=== PATIENT | female | born 1945 | race Caucasian/White ===

== ENCOUNTER 2016-10-22 13:39 | Emergency (ER) | payer MEDICARE, OTHER ==
[2016-10-22 13:49] VITALS: BMI 24.5
[2016-10-22 16:55] LABS: BASOPHIL 0.5 % (0-2.0); EOSINOPHIL 0.4 % (0-4.5); MCH 27.1 pg (25.7-33.7); MCHC 32.7 g/dl (32.0-36.0); MEAN CELL VOLUME 82.9 fl (80-96); MEAN PLT VOLUME 9.5 fl (7.5-11.1); NEUTROPHILS 65.7 % (42.8-82.8); PLATELET COUNT 222 K/MM3 (134-434); RDW 14.2 % (11.6-15.6); WHITE BLOOD COUNT 7.3 K/mm3 (4.0-10.0)
--- NOTE | 2016-10-22 16:57 | PDOC ---
History of Present Illness - General History Source: Patient, Old Records Exam Limitations: No Limitations <Pilar Lucas - Last Filed: 10/22/16 16:54> - General History Source: Patient Exam Limitations: No Limitations - History of Present Illness Initial Comments: 10/22/16 17:01 The patient is a 71-year-old woman with a significant past medical history of anemia, hypertension, hyperlipidemia, non-insulin dependent diabetes mellitus, nephrolithiasis, renal neoplasm, osteopenia, arthralgias who presents to the emergency department for evaluation of elevated blood pressure. Patient went to her PCP, Dr. Zhu, for a right subconjunctival hemorrhage. She was sent to an Opthamologist, Dr. Nathan Carranza for further evaluation Patient was noted to be hypertensive and she is on Aspirin, thus she was advised to present to the ED. Upon patient interview, she states that she has experienced a three month history of a dry intermittent cough. This morning, she coughed and noted that she developed a right subconjunctival hemorrhage. She admits she has not been compliant with her Aspirin for the past week. She also reports lower back pain. No fall, trauma, strenuous activity. No urinary complaints. No chest pain, lightheadedness, visual changes, neck pain, neck stiffness, abdominal pain, nausea, vomiting, diarrhea. Allergies: Penicillin Past Surgical History: Appendectomy. Cholecystectomy. Social History: Never smoked. No EtOH and recreational drug use. Primary Care Physician: Dr. Jamila Zhu <Candis Roth - Last Filed: 10/22/16 17:01> <Vanessa Martin - Last Filed: 10/22/16 17:49> - General Chief Complaint: Blood Pressure Problem Stated Complaint: HEADACHES, HIGH BP Time Seen by Provider: 10/22/16 14:31 Past History - Past Medical History Diabetes: Yes HTN: Yes Hypercholesterolemia: Yes - Surgical History Appendectomy: Yes Cholecystectomy: Yes - Psycho/Social/Smoking Cessation Hx Anxiety: No Suicidal Ideation: No Smoking History: Never smoked Have you smoked in the past 12 months: No Information on smoking cessation initiated: No Hx Alcohol Use: No Drug/Substance Use Hx: No Substance Use Type: None <Pilar Lucas - Last Filed: 10/22/16 16:54> <Candis Roth - Last Filed: 10/22/16 17:01> <MarioVanessa - Last Filed: 10/22/16 17:49> - Past Medical History Allergies/Adverse Reactions: Allergies Allergy/AdvReac Type Severity Reaction Status Date / Time Penicillins Allergy Verified 10/22/16 13:41 Home Medications: Ambulatory Orders Aspirin [ASA -] 81 mg PO DAILY 10/22/16 Atorvastatin Calcium 20 mg PO DAILY 10/22/16 Blood Sugar Diagnostic [Freestyle Insulinx Test Strips] 1 each MC DAILY Chlorthalidone 25 mg PO DAILY 10/22/16 Gabapentin [Neurontin] 100 mg PO HS 10/22/16 Glimepiride [Amaryl] 4 mg PO BID 10/22/16 Lancets [Freestyle Lancets] 1 each MC DAILY 10/22/16 Metformin HCl [Glucophage] 1,000 mg PO BID 10/22/16 Metoprolol Succinate [Toprol Xl -] 50 mg PO BID 10/22/16 Olmesartan Medoxomil [Benicar (Nf)] 40 mg PO DAILY 10/22/16 Review of Systems - Review of Systems Able to Perform ROS?: Yes Comments:: 10/22/16 17:01 GENERAL/CONSTITUTIONAL: No fever or chills. No weakness. HEAD, EYES, EARS, NOSE AND THROAT: Yes: right subconjunctival hemorrhage. No change in vision. No ear pain or discharge. No sore throat. CARDIOVASCULAR: No chest pain or shortness of breath. RESPIRATORY: Yes: cough. No cough, wheezing, or hemoptysis. GASTROINTESTINAL: No nausea, vomiting, diarrhea or constipation. GENITOURINARY: No dysuria, frequency, or change in urination. MUSCULOSKELETAL: Yes: Lower back pain. No joint or muscle swelling or pain. No neck pain. SKIN: No rash NEUROLOGIC: No headache, vertigo, loss of consciousness, or change in strength/ sensation. ENDOCRINE: No increased thirst. No abnormal weight change. HEMATOLOGIC/LYMPHATIC: Yes: History of anemia. No easy bleeding, or history of blood clots. ALLERGIC/IMMUNOLOGIC: No hives or skin allergy. <Candis Roth - Last Filed: 10/22/16 17:01> *Physical Exam - Vital Signs Last Vital Signs Temp Pulse Resp BP Pulse Ox 97.2 F L 64 16 190/51 96 10/22/16 15:00 10/22/16 15:00 10/22/16 15:00 10/22/16 15:00 10/22/16 15:00 <ShayyPliar - Last Filed: 10/22/16 16:54> - Vital Signs Last Vital Signs Temp Pulse Resp BP Pulse Ox 97.2 F L 64 16 190/51 96 10/22/16 15:00 10/22/16 15:00 10/22/16 15:00 10/22/16 15:00 10/22/16 15:00 - Physical Exam Comments: 10/22/16 17:02 GENERAL: Awake, alert, and fully oriented, in no acute distress HEAD: No signs of trauma EYES: PERRLA, EOMI, sclera anicteric, there is a right medial subconjunctival hemorrhage ENT: Auricles normal inspection, hearing grossly normal, nares patent, oropharynx clear without exudates. Moist mucosa NECK: Normal ROM, supple, no lymphadenopathy, JVD, or masses LUNGS: Breath sounds equal, clear to auscultation bilaterally. No wheezes, and no crackles HEART: Regular rate and rhythm, normal S1 and S2, no murmurs, rubs or gallops ABDOMEN: Soft, nontender, normoactive bowel sounds. No guarding, no rebound. No masses EXTREMITIES: Normal range of motion, no edema. No clubbing or cyanosis. No cords, erythema, or tenderness NEUROLOGICAL: Cranial nerves II through XII grossly intact. Normal speech, normal gait <Candis Roth - Last Filed: 10/22/16 17:01> - Vital Signs Last Vital Signs Temp Pulse Resp BP Pulse Ox 97.2 F L 64 16 190/51 96 10/22/16 15:00 10/22/16 15:00 10/22/16 15:00 10/22/16 15:00 10/22/16 15:00 <Vanessa Martin - Last Filed: 10/22/16 17:49> ED Treatment Course - LABORATORY CBC & Chemistry Diagram: 10/22/16 16:00 10/22/16 16:00 - ADDITIONAL ORDERS Additional order review: Laboratory Results 10/22/16 14:59 POC Glucometer [id number] 10/22/16 14:59 POC Glucometer [id number] - RADIOLOGY Radiology Studies Ordered: Category Date Time Status CHEST PA & LAT [RAD] Stat Radiology 10/22/16 15:49 Ordered <Pilar Lucas - Last Filed: 10/22/16 16:54> - LABORATORY CBC & Chemistry Diagram: 10/22/16 16:00 10/22/16 16:00 - ADDITIONAL ORDERS Additional order review: Laboratory Results 10/22/16 14:59 POC Glucometer [id number] 10/22/16 10/22/16 16:00 14:59 RBC 4.03 MCV 82.9 MCHC 32.7 RDW 14.2 MPV 9.5 Neutrophils % 65.7 Lymphocytes % 25.5 Monocytes % 7.9 Eosinophils % 0.4 Basophils % 0.5 POC Glucometer [id number] <Candis Roth - Last Filed: 10/22/16 17:01> - LABORATORY CBC & Chemistry Diagram: 10/22/16 16:00 10/22/16 16:00 - ADDITIONAL ORDERS Additional order review: Laboratory Results 10/22/16 10/22/16 10/22/16 16:13 16:00 14:59 Sodium 138 Potassium 5.5 H Chloride 105 Carbon Dioxide 22 Anion Gap 11 BUN 26 H Creatinine 1.0 Creat Clearance w eGFR 54.81 POC Glucometer 202.71904 Random Glucose 155 H Calcium 9.3 Total Bilirubin 0.3 AST 13 L ALT 22 Alkaline Phosphatase 70 Total Protein 7.5 Albumin 3.7 Urine Color Straw Urine Appearance Clear Urine pH 5.0 Urine Protein Negative Urine Glucose (UA) 2+ H Urine Ketones Negative Urine Blood Negative Urine Nitrite Negative Urine Bilirubin Negative Urine Urobilinogen Negative Ur Leukocyte Esterase Negative 10/22/16 10/22/16 16:00 14:59 RBC 4.03 MCV 82.9 MCHC 32.7 RDW 14.2 MPV 9.5 Neutrophils % 65.7 Lymphocytes % 25.5 Monocytes % 7.9 Eosinophils % 0.4 Basophils % 0.5 POC Glucometer 202.09601 <Vanessa Martin - Last Filed: 10/22/16 17:49> Medical Decision Making - Medical Decision Making 10/22/16 16:55 71-year-old female with history of hypertension, anemia, diabetes, hyperlipidemia and nephrolithiasis presents to the emergency department with some conjunctival hemorrhage of the right eye and three-month history of cough. Differential diagnosis includes but is not limited to: URI, pneumonia, malignancy, ALLERGIES, reactive airway disease. Plan: 1. Labs 2. EKG 3. Chest x-ray 4. Observe and reevaluate <Pilar Lucas - Last Filed: 10/22/16 16:54> *DC/Admit/Observation/Transfer - Discharge Dispostion Admit: No - Attestations Physician Attestion: 10/22/16 16:55 I, Dr. Pilar Lucas, attest that the scribes documentation that appears above has been prepared under my direction and personally reviewed by me in its entirety. I confirmed that the note above accurately reflects all work, treatment, procedures, and medical decision-making performed by me. <Pilar Lucas - Last Filed: 10/22/16 16:54> - Attestations Scribe Attestion: 10/22/16 17:02 Documentation prepared by Candis Roth, acting as medical terminologist for Pilar Lucas MD. <Candis Roth - Last Filed: 10/22/16 17:01> <Vanessa Martin - Last Filed: 10/22/16 17:49> Diagnosis at time of Disposition: Cough, Subconjunctival hemorrhage of right eye - Discharge Dispostion Disposition: HOME Condition at time of disposition: Stable - Referrals Referrals: Jamila Zhu MD [Primary Care Provider] -
[2016-10-22 16:58] LABS: ALBUMIN 3.7 g/dl (3.4-5.0); BILIRUBIN,TOTAL 0.3 mg/dL (0.2-1.0); CALCIUM 9.3 mg/dL (8.5-10.1); COCKROFT - GAULT 53.601; TOT PROT 7.5 g/dl (6.4-8.2)
[2016-10-22 17:08] LABS: URINE APPEARANCE CLEAR; URINE BILIRUBIN NEGATIVE (NEGATIVE); URINE BLOOD NEGATIVE (NEGATIVE); URINE COLOR STRAW; URINE GLUCOSE (UA) 2+ (NEGATIVE); URINE KETONE NEGATIVE (NEGATIVE); URINE LEUK ESTERASE NEGATIVE (NEGATIVE); URINE NITRITE NEGATIVE (NEGATIVE); URINE PROTEIN NEGATIVE (NEGATIVE); URINE UROBILINOGEN NEGATIVE E.U./dl (0.2-1.0)
[2016-10-22] MEDS ORDERED: ACETAMINOPHEN 325 MG TABLET (FP) PO ONE (17:49)
[2016-10-22] MEDS ORDERED: ACETAMINOPHEN 325 MG TABLET (FP) ONE (17:50)
[2016-10-22] MEDS ORDERED: SODIUM POLYSTYRENE SULFONATE 15 GM/60 ML BOTTLE ONE (17:50)
[2016-10-22 17:55] LABS: TROPONIN I < 0.02 ng/ml (0.00-0.05)
[2016-10-22 18:06] VITALS: BP 150/61; PULSE 60; TEMP 97.5
--- NOTE | 2016-10-23 11:45 | EKG ---
Test Reason : Blood Pressure : / mmHG Vent. Rate : 058 BPM Atrial Rate : 058 BPM P-R Int : 144 ms QRS Dur : 080 ms QT Int : 436 ms P-R-T Axes : 062 039 064 degrees QTc Int : 428 ms SINUS BRADYCARDIA OTHERWISE NORMAL ECG WHEN COMPARED WITH ECG OF 04-OCT-2010 16:03, NO SIGNIFICANT CHANGE WAS FOUND Confirmed by ABBY LOPEZ MD ([id number]) on 10/23/2016 11:44:33 AM Referred By: Confirmed By:ABBY LOPEZ MD
== END 2016-10-22 18:22 | disposition home or self-care (01) ==
LOC: JER 13:39
DX: H11.31 Conjunctival hemorrhage, right eye (principal); I10 Essential (primary) hypertension; E78.00 Pure hypercholesterolemia, unspecified; E11.9 Type 2 diabetes mellitus without complications; Z79.84 Long term (current) use of oral hypoglycemic drugs; M85.80 Other specified disorders of bone density and structure, unspecified site; Z87.442 Personal history of urinary calculi
CPT/HCPCS: 36415; 71020-TC; 80053; 81003; 82550; 84484; 85025; 93005; 93010; 99283-25

== ENCOUNTER 2019-01-21 10:14 | Observation (INO) | payer OTHER ==
[2019-01-21 10:19] VITALS: BMI 26.2
[2019-01-21 11:17] LABS: BASO % 0.4 % (0-2.0); EOS % 0.3 % (0-4.5); HEMATOCRIT 32.1 % (32.4-45.2); HEMOGLOBIN 10.6 GM/dL (10.7-15.3); LYMPH % 19.3 % (8-40); MCH 27.9 pg (25.7-33.7); MEAN CELL VOLUME 84.6 fl (80-96); MEAN PLT VOLUME 8.5 fl (7.5-11.1); PLATELET COUNT 185 K/MM3 (134-434); RBC 3.79 M/mm3 (3.60-5.2); RDW 13.6 % (11.6-15.6); WHITE BLOOD COUNT 6.9 K/mm3 (4.0-10.0)
[2019-01-21 11:31] LABS: INR 0.97 (0.83-1.09); PROTHROMBIN TIME (PATIENT) 11.5 SEC (9.7-13.0)
[2019-01-21 11:33] LABS: ACTIVATED PTT 34.7 SECONDS (25.2-36.5)
[2019-01-21 11:47] LABS: ALBUMIN 3.7 g/dl (3.4-5.0); ALK PHOS 74 U/L (45-117); ANION GAP 6 MMOL/L (8-16); BILIRUBIN,TOTAL 0.4 mg/dL (0.2-1); BLOOD UREA NITROGEN 27.1 mg/dL (7-18); CALCIUM 9.2 mg/dL (8.5-10.1); CHLORIDE 104 mmol/L (98-107); CO2 22 mmol/L (21-32); CREATININE 1.3 mg/dL (0.55-1.3); GLUCOSE,RANDOM 234 mg/dL (74-106); POTASSIUM 5.8 mmol/L (3.5-5.1); SGOT/AST 17 U/L (15-37); SGPT/ALT 21 U/L (13-61); SODIUM 133 mmol/L (136-145); TOT PROT 7.4 g/dl (6.4-8.2)
[2019-01-21] MEDS ORDERED: CALCIUM GLUCONATE 10% - 1,000 MG/10 ML VIAL IVPB ONE (12:36)
[2019-01-21] MEDS ORDERED: CALCIUM GLUCONATE 10% - 1,000 MG/10 ML VIAL ONE (13:00)
--- NOTE | 2019-01-21 13:00 | PDOC ---
Documentation entered by Jovon German SCRIBE, acting as scribe for Carleen Jaeger MD. Carleen Jaeger MD: This documentation has been prepared by the Maxi sy Daniel, SCRIBE, under my direction and personally reviewed by me in its entirety. I confirm that the documentation accurately reflects all work, treatment, procedures, and medical decision making performed by me. History of Present Illness - General Chief Complaint: Lightheaded Stated Complaint: DIZZINESS Time Seen by Provider: 01/21/19 11:02 History Source: Patient Exam Limitations: No Limitations - History of Present Illness Initial Comments: 01/21/19 11:47 The patient is a 73 year old female with a past medical history of diabetes, HTN , and HLD here today for evaluation of lightheadedness. The patient reports that she has had lightheadedness for the past week and notes that her blood pressure has been labile, at times high and at times low. She states that her dizziness is worse with walking and makes her feel like she is going to pass out. She also notes a gradual onset intermittent bitemporal headache above her eyes a/w with the lightheadedness. Patient notes that she was told to get an echocardiogram by her PCP Dr. Zhu. Patient denies fever, chills. Denies focal weakness/numbness. Denies chest pain , shortness of breath. Denies nausea, vomiting, diarrhea, abdominal pain. Denies changes in medication. Allergies: penicillins PCP: Jamila Zhu Manager Drive: Italo Cedillo Past History - Past Medical History Allergies/Adverse Reactions: Allergies Allergy/AdvReac Type Severity Reaction Status Date / Time Penicillins Allergy Verified 01/21/19 10:19 Home Medications: Ambulatory Orders Aspirin [ASA -] 81 mg PO DAILY 10/22/16 Amlodipine Besylate [Norvasc -] 2.5 mg PO PRN PRN 01/21/19 Insulin (Levemir) [Levemir Vial] 34 unit SQ HS 01/21/19 Insulin Aspart [Novolog] 0 unit SQ BID 01/21/19 Labetalol HCl [Normodyne -] 200 mg PO BID 01/21/19 Rosuvastatin [Crestor -] 5 mg PO HS 01/21/19 COPD: No Diabetes: Yes HTN: Yes Hypercholesterolemia: Yes - Surgical History Appendectomy: Yes Cholecystectomy: Yes - Suicide/Smoking/Psychosocial Hx Smoking History: Never smoked Have you smoked in the past 12 months: No Hx Alcohol Use: No Drug/Substance Use Hx: No Substance Use Type: None Review of Systems - Review of Systems Able to Perform ROS?: Yes Comments:: 01/21/19 11:48 GENERAL/CONSTITUTIONAL: +general weakness. +dizziness. No fever or chills. HEAD, EYES, EARS, NOSE AND THROAT: No change in vision. No ear pain or discharge. No sore throat. GASTROINTESTINAL: No nausea, vomiting, diarrhea or constipation. GENITOURINARY: No dysuria, frequency, or change in urination. CARDIOVASCULAR: No chest pain or shortness of breath. RESPIRATORY: No cough, wheezing, or hemoptysis. MUSCULOSKELETAL: No joint or muscle swelling or pain. No neck or back pain. SKIN: No rash NEUROLOGIC: +headache. No vertigo, loss of consciousness, or change in strength/ sensation. ENDOCRINE: No increased thirst. No abnormal weight change. HEMATOLOGIC/LYMPHATIC: No anemia, easy bleeding, or history of blood clots. ALLERGIC/IMMUNOLOGIC: No hives or skin allergy. *Physical Exam - Vital Signs Last Vital Signs Temp Pulse Resp BP Pulse Ox 97.9 F 67 16 174/42 H 100 01/21/19 10:16 01/21/19 10:16 01/21/19 10:16 01/21/19 10:16 01/21/19 11:00 - Physical Exam Comments: 01/21/19 11:50 GENERAL: Awake, alert, and fully oriented, in no acute distress HEAD: No signs of trauma EYES: PERRLA, EOMI, sclera anicteric, conjunctiva clear ENT: Auricles normal inspection, hearing grossly normal, nares patent, oropharynx clear without exudates. Moist mucosa NECK: Normal ROM, supple, no lymphadenopathy, JVD, or masses LUNGS: Breath sounds equal, clear to auscultation bilaterally. No wheezes, and no crackles HEART: Regular rate and rhythm, normal S1 and S2, no murmurs, rubs or gallops ABDOMEN: Soft, nontender, normoactive bowel sounds. No guarding, no rebound. No masses EXTREMITIES: Normal range of motion, no edema. No clubbing or cyanosis. No cords , erythema, or tenderness BACK: No midline spinal tenderness in cervical/thoracic/lumbar region NEUROLOGICAL: Normal speech, cranial nerves intact, negative pronator drift, 5/ 5 strength in all 4 extremities, normal sensation to light touch in all 4 extremities, normal cerebellar exam, normal gait, normal reflexes and tone SKIN: Warm, Dry, normal turgor, no rashes or lesions noted. Heart Score/ECG Review #1 01/21/19 12:56 EKG read and int by me: Sinus bradycardia, rate 58, normal axis and intervals, no NAT or TWI ED Treatment Course - LABORATORY CBC & Chemistry Diagram: 01/21/19 11:00 01/21/19 11:00 - ADDITIONAL ORDERS Additional order review: Laboratory Results 01/21/19 01/21/19 11:00 11:00 PT with INR 11.50 INR 0.97 PTT (Actin FS) 34.7 Cancelled 01/21/19 11:00 RBC 3.79 MCV 84.6 MCHC 33.0 RDW 13.6 MPV 8.5 Neutrophils % 73.0 Lymphocytes % 19.3 Monocytes % 7.0 Eosinophils % 0.3 D Basophils % 0.4 - RADIOLOGY Radiology Studies Ordered: Category Date Time Status CHEST X-RAY PORTABLE* [RAD] Stat Radiology 01/21/19 11:11 Completed Medical Decision Making - Medical Decision Making 01/21/19 12:56 73yo F hx IDDM, HTN presents to the ED with labile blood pressure, and lightheadedness While nurse was putting IV, pt had vagal episode Lightheadedness is postural, in concert with high potassium, mild hyponatremia, possible adrenal insufficiency? Pt near syncopal while walking for 1 week Plan to admit to tele obs, discuss with cards Paged Dr. Cedillo, awaiting call back 01/21/19 14:[address] Cedillo, requests echo, admission Case discussed with Dr. Nighat Zafar, pt admitted to Dr. Levy Case discussed in detail with admitting physician including history, physical exam and ancillary studies. Admitting physician has assumed care for the patient, will follow all pending diagnostics and will complete the evaluation and treatment. *DC/Admit/Observation/Transfer Diagnosis at time of Disposition: Pre-syncope, Hyperkalemia - Discharge Dispostion Condition at time of disposition: Stable Decision to Admit order Date/Time: Decision to Admit Order Category Date Time Status Decision to Admit to Hospital Routine Admission 01/21/19 11:45 Active - Referrals Referrals: Jamila Zhu MD [Primary Care Provider] - - Patient Instructions - Post Discharge Activity - Attestations Physician Attestion: 01/21/19 14:18 I, Dr. Carleen Jaeger MD, attest that this document has been prepared under my direction and personally reviewed by me in its entirety. I further attest, that it accurately reflects all work, treatment, procedures and medical decision -making performed by me.
[2019-01-21] MEDS ORDERED: INSULIN REGULAR HUMAN 100 UNITS/ML *VIAL IVPUSH ONE (13:01)
[2019-01-21] MEDS ORDERED: SODIUM CHLORIDE 1,000 ML IV STA (13:01)
[2019-01-21] MEDS ORDERED: DEXTROSE 50%-WATER - 25 GM/50 ML VIAL IVPUSH ONE (13:01)
[2019-01-21] MEDS ORDERED: DEXTROSE 50%-WATER 25 GM/50 ML DISP.SYRIN ONE (13:09)
[2019-01-21] MEDS ORDERED: ACETAMINOPHEN 325 MG TABLET (FP) PO PRN (15:50)
[2019-01-21] MEDS ORDERED: SODIUM CHLORIDE 1,000 ML IV SCH (16:00)
--- NOTE | 2019-01-21 16:19 | HP ---
CHIEF COMPLAINT: Lightheaded ness PCP: Dr. Morgan HISTORY OF PRESENT ILLNESS: 73 y/o F with PMHx of IDDM, HTN, HLD presents with lightheadedness. patient has felt lightedheaded for the past one week. She is unable to identify a trigger but makes mention that it is accompanied by dizziness and blurry vision. While at home, her BP has been very labile; Patient measures atleast 3-4 times daily, with pressure ranges from 150-200/40's. Since onset, she has tried to increase her PO hydration and increase her salt intake however the dizziness has persisted. She additionally has had a bitemporal headache, worst over her nasal bridge. She halved her labetalol dose (now 100mg TID) which has also failed to provide relief. The persistence of symptoms accompanied by feelings of passing out have prompter her to visit the ED. Her sx's do worsen when going from supine to seated position. While in the ED, patient had a witnessed syncopal episode while an IV line insertion was being attempted. This is the 1st time she says she has felt these symptoms. She has been able to tolerate PO intake with her last meal this AM. She has had normal BM's and denies any urinary sx's. Denies any associated fevers, chills, chest pain, SOB, nausea, vomtiing, diarrhea, constipation. ER course was notable for: (1) (2) (3) Recent Travel: Denies PAST MEDICAL HISTORY: As above PAST SURGICAL HISTORY: CCY, Appendectomy, Tubal ligation, Spine sx Social History: Smoking: Denies Alcohol: Denies Drugs: Denies Residence: lives with and daughter Family History: DM, HTN Allergies Penicillins Allergy (Verified 01/21/19 10:19) HOME MEDICATIONS: Home Medications Medication Instructions Recorded Aspirin [ASA -] 81 mg PO DAILY 10/22/16 Amlodipine Besylate [Norvasc -] 2.5 mg PO PRN PRN 01/21/19 Insulin (Levemir) [Levemir Vial] 34 unit SQ HS 01/21/19 Insulin Aspart [Novolog] 0 unit SQ BID 01/21/19 Labetalol HCl [Normodyne -] 200 mg PO BID 01/21/19 Rosuvastatin [Crestor -] 5 mg PO HS 01/21/19 REVIEW OF SYSTEMS As per [facility] PHYSICAL EXAMINATION Vital Signs - 24 hr 01/21/19 01/21/19 10:16 11:00 Temperature 97.9 F Pulse Rate 67 Respiratory 16 Rate Blood Pressure 174/42 H O2 Sat by Pulse 99 100 Oximetry (%) GENERAL: A&Ox3, NAD HEAD: NCAT EYES: PERRL, EOMI EARS, NOSE, THROAT: Moist mucous membranes. NECK: No JVD LUNGS: CTAB. No wheezes, no crackles. HEART: Regular rate and rhythm, normal S1 and S2 without murmur ABDOMEN: Soft, nontender, not distended, + bowel sounds, no guarding, no rebound MUSCULOSKELETAL: No CVA tenderness EXTREMITIES: 2+ pulses, No peripheral edema. NEUROLOGICAL: Cranial nerves II-XII intact. Normal speech. SKIN: Warm, dry Laboratory Results - last 24 hr 01/21/19 01/21/19 01/21/19 11:00 11:00 11:00 WBC 6.9 RBC 3.79 Hgb 10.6 L Hct 32.1 L MCV 84.6 MCH 27.9 MCHC 33.0 RDW 13.6 Plt Count 185 D MPV 8.5 Absolute Neuts (auto) 5.0 Neutrophils % 73.0 Lymphocytes % 19.3 Monocytes % 7.0 Eosinophils % 0.3 D Basophils % 0.4 Nucleated RBC % 0 PT with INR INR PTT (Actin FS) Cancelled Sodium 133 L Potassium 5.8 H Chloride 104 Carbon Dioxide 22 Anion Gap 6 L BUN 27.1 H Creatinine 1.3 Est GFR (CKD-EPI)AfAm 47.46 Est GFR (CKD-EPI)NonAf 40.95 Random Glucose 234 H Calcium 9.2 Total Bilirubin 0.4 AST 17 ALT 21 Alkaline Phosphatase 74 Creatine Kinase 141 Troponin I < 0.02 B-Natriuretic Peptide 843.0 H Total Protein 7.4 Albumin 3.7 Blood Type Antibody Screen 01/21/19 01/21/19 11:00 11:00 WBC RBC Hgb Hct MCV MCH MCHC RDW Plt Count MPV Absolute Neuts (auto) Neutrophils % Lymphocytes % Monocytes % Eosinophils % Basophils % Nucleated RBC % PT with INR 11.50 INR 0.97 PTT (Actin FS) 34.7 Sodium Potassium Chloride Carbon Dioxide Anion Gap BUN Creatinine Est GFR (CKD-EPI)AfAm Est GFR (CKD-EPI)NonAf Random Glucose Calcium Total Bilirubin AST ALT Alkaline Phosphatase Creatine Kinase Troponin I B-Natriuretic Peptide Total Protein Albumin Blood Type B POSITIVE Antibody Screen Negative Active Medications Acetaminophen (Tylenol -) 650 mg PO Q4H PRN PRN Reason: PAIN OR FEVER Heparin Sodium (Porcine) (Heparin -) 5,000 unit SQ Q8H-IV HITESH Sodium Chloride (Normal Saline -) 1,000 mls @ 100 mls/hr IV ASDIR HITESH ASSESSMENT/PLAN: 73 y/o F with PMHx of IDDM, HTN, HLD presents with lightheadedness and has a syncopal episode. #Lightheadness -Concerning for Near-syncope, followed by syncopal episode in ED, likely due to dehydration; Still consider Adrenal insufficency in the setting of electrolyte abnormality and postural symptoms -Trop Negative, EKG Reveals Sinus bradycardia VR 58 QTc 445 -Check AM Cortisol, Orthostatic VS, Echo, Carotid dopplers, CT Head -Continue IV hydration -Cardio (Dr. Wray) consulted; Case disccused with Dr. Cedillo by ED -Tele -Fall precautions -Physical therapy -Neurochecks Q2H #HTN -Will restart antiHTN meds once reconcilled #DM -ISS BGMs ACHS #FEN -IV NS @ 75 mls/hr -Lytes WNL, Replete PRN -Diabetic diet #PPx -DVT: Heparin SQ TID Dispo: Tele-Obs Visit type - Emergency Visit Emergency Visit: Yes ED Registration Date: 01/21/19 Care time: The patient presented to the Emergency Department on the above date and was hospitalized for further evaluation of their emergent condition. - New Patient This patient is new to me today: Yes Date on this admission: 01/21/19 - Critical Care Critical Care patient: No ATTENDING PHYSICIAN STATEMENT I saw and evaluated the patient. I reviewed the resident's note and discussed the case with the resident. I agree with the resident's findings and plan as documented. SUBJECTIVE: OBJECTIVE: ASSESSMENT AND PLAN:
[2019-01-21] MEDS ORDERED: INSULIN SLIDING SCALE (NOVOLOG) 1 VIAL SQ SCH (16:30)
[2019-01-21 16:43] VITALS: BP 226/74; PULSE 74
[2019-01-21 17:05] VITALS: TEMP 98
--- NOTE | 2019-01-21 17:30 | DS ---
Physical Exam: SUBJECTIVE: I was informed patient was discharged thus a Subjective was not preformed. OBJECTIVE: Vital Signs Period Temp Pulse Resp BP Sys/Stuart Pulse Ox Last 24 Hr 97.9 F-98.0 F 65-74 16-20 174-226/39-74 98-100 PHYSICAL EXAM I was informed patient was discharged thus an Objective was not preformed. LABS Laboratory Results - last 24 hr 01/21/19 01/21/19 01/21/19 11:00 11:00 11:00 WBC 6.9 RBC 3.79 Hgb 10.6 L Hct 32.1 L MCV 84.6 MCH 27.9 MCHC 33.0 RDW 13.6 Plt Count 185 D MPV 8.5 Absolute Neuts (auto) 5.0 Neutrophils % 73.0 Lymphocytes % 19.3 Monocytes % 7.0 Eosinophils % 0.3 D Basophils % 0.4 Nucleated RBC % 0 PT with INR INR PTT (Actin FS) Cancelled Sodium 133 L Potassium 5.8 H Chloride 104 Carbon Dioxide 22 Anion Gap 6 L BUN 27.1 H Creatinine 1.3 Est GFR (CKD-EPI)AfAm 47.46 Est GFR (CKD-EPI)NonAf 40.95 Random Glucose 234 H Calcium 9.2 Total Bilirubin 0.4 AST 17 ALT 21 Alkaline Phosphatase 74 Creatine Kinase 141 Troponin I < 0.02 B-Natriuretic Peptide 843.0 H Total Protein 7.4 Albumin 3.7 Blood Type Antibody Screen 01/21/19 01/21/19 11:00 11:00 WBC RBC Hgb Hct MCV MCH MCHC RDW Plt Count MPV Absolute Neuts (auto) Neutrophils % Lymphocytes % Monocytes % Eosinophils % Basophils % Nucleated RBC % PT with INR 11.50 INR 0.97 PTT (Actin FS) 34.7 Sodium Potassium Chloride Carbon Dioxide Anion Gap BUN Creatinine Est GFR (CKD-EPI)AfAm Est GFR (CKD-EPI)NonAf Random Glucose Calcium Total Bilirubin AST ALT Alkaline Phosphatase Creatine Kinase Troponin I B-Natriuretic Peptide Total Protein Albumin Blood Type B POSITIVE Antibody Screen Negative HOSPITAL COURSE: Date of Admission:01/21/19 Date of Discharge: 01/21/19 73 y/o F with PMHx of IDDM, HTN, HLD presents with lightheadedness and has a syncopal episode. Patient was evaluated for a syncopal episode however no further workup was completed as patient became upset when informed she would have to spend the night in the Hospital. She was informed of the need for close tele monitoring for possible arrythmia and BP monitoring. Patient verbalizes understanding of the risks of leaving including further syncopal episodes, arrhythmia, PA, Stroke and however insists on going home and returning for an Echo appointment tomorrow morning. AMA form signed thus no further workup was completed as outlined in hnp. Patient encouraged to return to ED with any worsening of sx's. Minutes to complete discharge: 30 Discharge Summary Reason For Visit: LIGHTHEADEDNESS Condition: Stable - Instructions Disposition: AGAINST MEDICAL ADVICE - Home Medications Comprehensive Discharge Medication List: Ambulatory Orders Aspirin [ASA -] 81 mg PO DAILY 10/22/16 Amlodipine Besylate [Norvasc -] 2.5 mg PO PRN PRN 01/21/19 Insulin (Levemir) [Levemir Vial] 34 unit SQ HS 01/21/19 Insulin Aspart [Novolog] 0 unit SQ BID 01/21/19 Labetalol HCl [Normodyne -] 200 mg PO BID 01/21/19 Rosuvastatin [Crestor -] 5 mg PO HS 01/21/19 This patient is new to me today: Yes Date on this admission: 01/21/19 Emergency Visit: Yes ED Registration Date: 01/21/19 Care time: The patient presented to the Emergency Department on the above date and was hospitalized for further evaluation of their emergent condition. Critical Care patient: No - Discharge Referral Referred to [facility] No ATTENDING PHYSICIAN STATEMENT I saw and evaluated the patient. I reviewed the resident's note and discussed the case with the resident. I agree with the resident's findings and plan as documented. SUBJECTIVE: OBJECTIVE: ASSESSMENT AND PLAN:
--- NOTE | 2019-01-21 17:35 | CON.CARD ---
Cardiology Consult (text) - Consultation Consultation Note: cc: dizzy hpi: 73 f hx labile htn, dm, hld, here with dizziness. Has chronic labile htn with episodes of dizziness, had same today. No cp sob palps loc pnd orthopnea le edema. In ER bp was elevated. Sees dr floyd for cardio. pmh: per hpi psh: appendectomy social: no tob fam: no premature cad ros: per hpi; all others nl meds: Ambulatory Orders Aspirin [ASA -] 81 mg PO DAILY 10/22/16 Amlodipine Besylate [Norvasc -] 2.5 mg PO PRN PRN 01/21/19 Insulin (Levemir) [Levemir Vial] 34 unit SQ HS 01/21/19 Insulin Aspart [Novolog] 0 unit SQ BID 01/21/19 Labetalol HCl [Normodyne -] 200 mg PO BID 01/21/19 Rosuvastatin [Crestor -] 5 mg PO HS 01/21/19 pe: Vital Signs Period Temp Pulse Resp BP Sys/Stuart Pulse Ox Last 24 Hr 97.9 F-98.0 F 65-74 16-20 174-226/39-74 98-100 nad no jvd rrr s1s2 no mrg cta bl nl eff aao3 no le e/c/c abd nt nd pos bs no jaundice diaphoresis pos dp pt no carotid bruits Laboratory Last Values WBC 6.9 K/mm3 (4.0-10.0) 01/21/19 11:00 RBC 3.79 M/mm3 (3.60-5.2) 01/21/19 11:00 Hgb 10.6 GM/dL (10.7-15.3) L 01/21/19 11:00 Hct 32.1 % (32.4-45.2) L 01/21/19 11:00 MCV 84.6 fl (80-96) 01/21/19 11:00 MCH 27.9 pg (25.7-33.7) 01/21/19 11:00 MCHC 33.0 g/dl (32.0-36.0) 01/21/19 11:00 RDW 13.6 % (11.6-15.6) 01/21/19 11:00 Plt Count 185 K/MM3 (134-434) D 01/21/19 11:00 MPV 8.5 fl (7.5-11.1) 01/21/19 11:00 Absolute Neuts (auto) 5.0 K/mm3 (1.5-8.0) 01/21/19 11:00 Neutrophils % 73.0 % (42.8-82.8) 01/21/19 11:00 Lymphocytes % 19.3 % (8-40) 01/21/19 11:00 Monocytes % 7.0 % (3.8-10.2) 01/21/19 11:00 Eosinophils % 0.3 % (0-4.5) D 01/21/19 11:00 Basophils % 0.4 % (0-2.0) 01/21/19 11:00 Nucleated RBC % 0 % (0-0) 01/21/19 11:00 PT with INR 11.50 SEC (9.7-13.0) 01/21/19 11:00 INR 0.97 (0.83-1.09) 01/21/19 11:00 PTT (Actin FS) 34.7 SECONDS (25.2-36.5) 01/21/19 11:00 Sodium 133 mmol/L (136-145) L 01/21/19 11:00 Potassium 5.8 mmol/L (3.5-5.1) H 01/21/19 11:00 Chloride 104 mmol/L (98-107) 01/21/19 11:00 Carbon Dioxide 22 mmol/L (21-32) 01/21/19 11:00 Anion Gap 6 MMOL/L (8-16) L 01/21/19 11:00 BUN 27.1 mg/dL (7-18) H 01/21/19 11:00 Creatinine 1.3 mg/dL (0.55-1.3) 01/21/19 11:00 Est GFR (CKD-EPI)AfAm 47.46 01/21/19 11:00 Est GFR (CKD-EPI)NonAf 40.95 01/21/19 11:00 Random Glucose 234 mg/dL (74-106) H 01/21/19 11:00 Calcium 9.2 mg/dL (8.5-10.1) 01/21/19 11:00 Total Bilirubin 0.4 mg/dL (0.2-1) 01/21/19 11:00 AST 17 U/L (15-37) 01/21/19 11:00 ALT 21 U/L (13-61) 01/21/19 11:00 Alkaline Phosphatase 74 U/L (45-117) 01/21/19 11:00 Creatine Kinase 141 U/L (26-192) 01/21/19 11:00 Troponin I < 0.02 ng/ml (0.00-0.05) 01/21/19 11:00 B-Natriuretic Peptide 843.0 pg/ml (5-125) H 01/21/19 11:00 Total Protein 7.4 g/dl (6.4-8.2) 01/21/19 11:00 Albumin 3.7 g/dl (3.4-5.0) 01/21/19 11:00 Blood Type B POSITIVE 01/21/19 11:00 Antibody Screen Negative 01/21/19 11:00 cxr: clear lungs ecg: sr, no ischemic changes echo 09/2018: nl lv/rv, mild mr, mild tr, nl rvsp a/p: 73 f hx labile htn, dm, hld, here with dizziness. dizzy, labile htn: -pt with known labile htn -she has intolerances to ccb, suzanne, diuretics -has been managed with labetalol 100 q6h, resume here and monitor bp -check updated echo, ortho vitals, monitor tele -no signs acs, chf hld: -cont statin
--- NOTE | 2019-01-21 17:44 | PN ---
Teaching Attending Note Name of Resident: Nighat Zafar ATTENDING PHYSICIAN STATEMENT I saw and evaluated the patient. I reviewed the resident's note and discussed the case with the resident. I agree with the resident's findings and plan as documented. SUBJECTIVE:73 y/o F with PMHx of IDDM, HTN, HLD presents with lightheadedness x1 week. assoc with MARISCAL and blurred vision. has been adjusted her labetolol doses lately due to labile symptomatic BP. states when she has her symptoms her sbp is in the 170s and is asymptomatic when higher than that. was on labetolol 200mg Q6H and was just switched back to 400mg BID and continues to have symptoms. only when ambulating and not when sitting at rest. pt very upset that she has to spend the night in the hospital and wants to return tomorrow for further testing. explained reason for hospitalization to monitor for arrythmia and closely monitor BP. states she wants to go home and has appt 9am tomorrow for echo which she return for. verbalized understanding of risks and wish to go home. present at bedside and agrees with patient wishes. encouraged to return to Er for worsening symptoms or CP. AMA form signed
--- NOTE | 2019-01-21 21:18 | EKG ---
Test Reason : Blood Pressure : / mmHG Vent. Rate : 058 BPM Atrial Rate : 058 BPM P-R Int : 164 ms QRS Dur : 086 ms QT Int : 454 ms P-R-T Axes : 065 040 066 degrees QTc Int : 445 ms SINUS BRADYCARDIA OTHERWISE NORMAL ECG WHEN COMPARED WITH ECG OF 22-OCT-2016 16:31, NO SIGNIFICANT CHANGE WAS FOUND Confirmed by DEJUAN YODER MD ([id number]) on 01/21/2019 9:18:36 PM Referred By: Confirmed By:DEJUAN YODER MD
[2019-01-21] MEDS ORDERED: HEPARIN NA (PORCINE) 5,000 UNITS/ML 1ML VIAL SQ SCH (22:00)
== END 2019-01-21 17:01 | disposition left against medical advice (07) ==
LOC: JER 10:14 → JERBED 11:45
PROVIDERS: ADMIT Internal Medicine; ATTEND Internal Medicine
PROC: 3E033VG Introduction of Insulin into Peripheral Vein, Percutaneous Approach (ICD-10-PCS; principal; 2019-01-21)
PROC: 3E0337Z Introduction of Electrolytic and Water Balance Substance into Peripheral Vein, Percutaneous Approach (ICD-10-PCS; 2019-01-21)
PROC: 3E033GC Introduction of Other Therapeutic Substance into Peripheral Vein, Percutaneous Approach (ICD-10-PCS; 2019-01-21)
DX: R55 Syncope and collapse (principal); E87.5 Hyperkalemia; I10 Essential (primary) hypertension; E78.5 Hyperlipidemia, unspecified; E11.9 Type 2 diabetes mellitus without complications; Z79.4 Long term (current) use of insulin; Z79.82 Long term (current) use of aspirin
CPT/HCPCS: 36415; 71045-TC-FY; 80053; 82550; 83880; 84484; 85025; 85610; 85730; 86850; 86900; 86901; 93005; 93010; 96361; 96374; 96375; 99285-25; G0378; J7030